=== PATIENT | female | born 1985 | race Caucasian/White ===

== ENCOUNTER 2023-04-24 21:50 | Emergency (ER) | payer OTHER ==
[~2023-04-24] VITALS: Ht 157.5 cm; Wt 56.4 kg
[2023-04-24 22:04] VITALS: BP 120/74; PULSE 90; RESP 15; TEMP 98.5; O2SAT 98
[2023-04-25] MEDS ORDERED: DEXAMETHASONE 4 MG/ML VIAL PO ONE (00:45)
[2023-04-25] MEDS ORDERED: ONDA-188 PO (01:20)
== END 2023-04-25 01:27 | disposition home or self-care (01) ==
LOC: MED 21:50
DX: R09.89 Other specified symptoms and signs involving the circulatory and respiratory systems (principal); Z79.899 Other long term (current) drug therapy
CPT/HCPCS: 70360; 71046; 99284; J1100